=== PATIENT | female | born 1960 | race Caucasian/White ===

== ENCOUNTER 2023-02-04 19:02 | Inpatient (IN) | payer OTHER ==
[2023-02-04 19:39] VITALS: BMI 21.7
[2023-02-04] MEDS ORDERED: NALOXONE HCL 0.4 MG/ML VIAL IM PRN (20:55)
[2023-02-04] MEDS ORDERED: IBUPROFEN 400 MG TABLET (FP) PO PRN (20:55)
[2023-02-04] MEDS ORDERED: ONDANSETRON *ODT* 4 MG TABLET SL PRN (20:55)
[2023-02-04] MEDS ORDERED: BISMUTH SUBSALICYLATE 524 MG/30 ML PO PRN (20:55)
[2023-02-04] MEDS ORDERED: IBUPROFEN 600 MG TABLET (FP) PO PRN (20:55)
[2023-02-04] MEDS ORDERED: MAGNESIUM HYDROX 2400MG/30ML ORAL SUSPENSION 30 ML CUP PO PRN (20:55)
[2023-02-04] MEDS ORDERED: MAG HYDROX/AL HYDROX/SIMETH 30 ML UNIT-DOSE CUP PO PRN (20:55)
[2023-02-04] MEDS ORDERED: guaiFENesin 600 MG TABLET.ER (FP) PO PRN (20:55)
[2023-02-04] MEDS ORDERED: ACETAMINOPHEN 325 MG TABLET (FP) PO PRN (20:55)
[2023-02-04] MEDS ORDERED: BENZONATATE 200 MG CAPSULE PO PRN (20:55)
[2023-02-04] MEDS ORDERED: BENZOCAINE/MENTHOL (CHLORASEPTIC ) LOZENGE MM PRN (20:55)
[2023-02-04] MEDS ORDERED: NALOXONE HCL (KLOXXADO) 8 MG SPRAY NS PRN (20:55)
[2023-02-04] MEDS ORDERED: POLYETHYLENE GLYCOL (HEALTHYLAX) 3350 17 GM PACKET PO PRN (20:55)
[2023-02-04] MEDS ORDERED: LOPERAMIDE HCL 2 MG CAPSULE PO PRN (20:55)
[2023-02-04] MEDS ORDERED: ONDANSETRON *ODT* 4 MG TABLET ONE (21:29)
[2023-02-04] MEDS: MELATONIN 5 MG TABLETS PO SCH (23:34)
[2023-02-04] MEDS: THIAMINE HCL 100 MG TABLET (FP) PO SCH (23:34)
[2023-02-05] MEDS: PRENATAL VITAMINS W/ FOLIC ACID TABLET (FP) PO SCH (09:10)
[2023-02-05] MEDS ORDERED: diazePAM 5 MG TABLET PO PRN (10:10)
[2023-02-05] MEDS: diazePAM 5 MG TABLET PO SCH ×3 (10:47→22:10)
[2023-02-05 11:05] LABS: HEMATOCRIT 39.1 % (32.4-45.2); HEMOGLOBIN 12.3 GM/dL (10.7-15.3); MCHC 31.5 g/dl (32.0-36.0); MEAN PLT VOLUME 7.9 fl (7.5-11.1); PLATELET COUNT 458 10^3/uL (134-434); RDW 18.9 % (11.6-15.6)
[2023-02-05 11:17] LABS: CHLORIDE 103 mmol/L (98-107); POTASSIUM 3.9 mmol/L (3.5-5.1); SODIUM 141 mmol/L (136-145)
[2023-02-05 11:30] LABS: ALBUMIN 3.8 g/dl (3.4-5.0); ANION GAP 9 mmol/L (4-13); BLOOD UREA NITROGEN 10.2 mg/dL (7-18); CALCIUM 9.2 mg/dL (8.5-10.1); CO2 29 mmol/L (21-32)
[2023-02-05 11:31] LABS: GLUCOSE,RANDOM 136 mg/dL (74-106)
[2023-02-05 11:33] LABS: CREATININE 0.8 mg/dL (0.55-1.3); SGOT/AST 39 U/L (15-37); SGPT/ALT 32 U/L (13-61)
[2023-02-05 11:35] LABS: BILIRUBIN,TOTAL 1.4 mg/dL (0.2-1)
[2023-02-05 11:36] LABS: ALK PHOS 139 U/L (45-117)
[2023-02-05] MEDS: THIAMINE HCL 100 MG TABLET (FP) PO SCH (22:10)
[2023-02-05] MEDS: MELATONIN 5 MG TABLETS PO SCH (22:10)
[2023-02-05] MEDS: rOPINIRole HCL 0.25 MG TABLET PO SCH (22:10)
[2023-02-06] MEDS: diazePAM 5 MG TABLET PO SCH ×4 (05:45→22:22)
[2023-02-06] MEDS: PRENATAL VITAMINS W/ FOLIC ACID TABLET (FP) PO SCH (10:13)
[2023-02-06] MEDS: MELATONIN 5 MG TABLETS PO SCH (22:20)
[2023-02-06] MEDS: THIAMINE HCL 100 MG TABLET (FP) PO SCH (22:20)
[2023-02-06] MEDS: rOPINIRole HCL 0.25 MG TABLET PO SCH (22:20)
[2023-02-07] MEDS: diazePAM 5 MG TABLET PO SCH ×3 (05:13→22:10)
[2023-02-07] MEDS: PRENATAL VITAMINS W/ FOLIC ACID TABLET (FP) PO SCH (10:07)
[2023-02-07] MEDS: rOPINIRole HCL 0.25 MG TABLET PO SCH (22:09)
[2023-02-07] MEDS: MELATONIN 5 MG TABLETS PO SCH (22:09)
[2023-02-07] MEDS: THIAMINE HCL 100 MG TABLET (FP) PO SCH (22:10)
[2023-02-08] MEDS: diazePAM 5 MG TABLET PO SCH ×2 (05:24→17:22)
[2023-02-08] MEDS: PRENATAL VITAMINS W/ FOLIC ACID TABLET (FP) PO SCH (09:22)
[2023-02-08] MEDS: THIAMINE HCL 100 MG TABLET (FP) PO SCH (22:11)
[2023-02-08] MEDS: rOPINIRole HCL 0.25 MG TABLET PO SCH (22:11)
[2023-02-08] MEDS: MELATONIN 5 MG TABLETS PO SCH (22:11)
[2023-02-09] MEDS ORDERED: diazePAM 5 MG TABLET PO ONE (06:00)
[2023-02-09] MEDS: PRENATAL VITAMINS W/ FOLIC ACID TABLET (FP) PO SCH (10:06)
[2023-02-09] MEDS: THIAMINE HCL 100 MG TABLET (FP) PO SCH (22:12)
[2023-02-09] MEDS: rOPINIRole HCL 0.25 MG TABLET PO SCH (22:12)
[2023-02-09] MEDS: MELATONIN 5 MG TABLETS PO SCH (22:12)
[2023-02-10] MEDS: PRENATAL VITAMINS W/ FOLIC ACID TABLET (FP) PO SCH (09:38)
[2023-02-10] MEDS: THIAMINE HCL 100 MG TABLET (FP) PO SCH (22:28)
[2023-02-10] MEDS: MELATONIN 5 MG TABLETS PO SCH (22:28)
[2023-02-11 07:12] VITALS: RESP 16
[2023-02-11] MEDS: PRENATAL VITAMINS W/ FOLIC ACID TABLET (FP) PO SCH (09:53)
[2023-02-11 13:01] VITALS: BP 144/85; PULSE 90; TEMP 97.6
== END 2023-02-11 13:50 | disposition other institution (70) | DRG 775 ==
LOC: YASAS 19:02 → Y3N 22:44
PROVIDERS: ADMIT Allergy & Immunology; ATTEND Surgery
PROC: HZ2ZZZZ Detoxification Services for Substance Abuse Treatment (ICD-10-PCS; principal; 2023-02-04)
DX: F10.230 Alcohol dependence with withdrawal, uncomplicated (principal); F13.20 Sedative, hypnotic or anxiolytic dependence, uncomplicated; F12.20 Cannabis dependence, uncomplicated; F10.24 Alcohol dependence with alcohol-induced mood disorder; F41.9 Anxiety disorder, unspecified; F32.A Depression, unspecified; G47.00 Insomnia, unspecified; Z87.891 Personal history of nicotine dependence; Z28.310 Unvaccinated for COVID-19; Z28.9 Immunization not carried out for unspecified reason; Z56.0 Unemployment, unspecified; Z59.00 Homelessness unspecified
CPT/HCPCS: 36415; 80053; 80307; 85027; 86780; 87635; 87811; 93005; 93010; Q0162